=== PATIENT | male | born 1995 | race Caucasian/White ===

== ENCOUNTER 2020-12-27 14:25 | Emergency (ER) | payer SELFPAY ==
[~2020-12-27] VITALS: Ht 193 cm; Wt 241.4 kg
[~2020-12-27 14:25] MED LIST: ALBUTEROL17 GM
[2020-12-27] MEDS ORDERED: CLONIDINE HCL 0.1 MG TAB PO ONE (15:30)
== END 2020-12-27 15:52 | disposition home or self-care (01) ==
LOC: ER 15:02
DX: H60.92 Unspecified otitis externa, left ear (principal)
CPT/HCPCS: 99283